=== PATIENT | female | born 1960 | race Caucasian/White ===

== ENCOUNTER 2018-07-29 10:27 | Day surgery (SDC) | payer MEDICAID ==
[2018-07-21 17:26] LABS: BASOPHILS # (AUTO) 0.1 X10'3 (0-0.2); BASOPHILS % (AUTO) 0.7 % (0-1); EOSINOPHILS # (AUTO) 0.2 X10'3 (0-0.9); EOSINOPHILS % (AUTO) 3.2 % (0-6); LYMPHOCYTES # (AUTO) 2.1 X10'3 (1.1-4.8); MEAN CORPUSCULAR HEMOGLOBIN 28.4 PG (27.0-31.0); MEAN CORPUSCULAR HGB CONC 32.7 g/dL (33.0-36.5); MEAN CORPUSCULAR VOLUME 86.7 FL (78-98); MEAN PLATELET VOLUME 8.3 FL (7.4-10.4); MONOCYTES # (AUTO) 0.8 X10'3 (0-0.9); MONOCYTES % (AUTO) 9.9 % (2-12); NEUTROPHILS # (AUTO) 4.5 X10'3 (1.8-7.7); NEUTROPHILS % (AUTO) 59.2 % (42-75); PRE OP HEMATOCRIT 40.1 % (35.0-45.0); PRE OP HEMOGLOBIN 13.1 g/dL (12.0-16.0); PRE OP PLATELET COUNT 267 X10'3 (140-440); RED BLOOD COUNT 4.62 X10'6 (4.20-5.60); RED CELL DISTRIBUTION WIDTH 13.6 % (11.5-14.5)
[2018-07-21 17:38] LABS: ALBUMIN 3.8 G/DL (3.4-5.0); ALBUMIN/GLOBULIN RATIO 1.1 (1.1-1.5); ALKALINE PHOSPHATASE 69 IU/L (46-116); BLOOD UREA NITROGEN 14 MG/DL (7-18); CALCIUM 9.2 MG/DL (8.5-10.1); CHLORIDE 105 MMOL/L (99-107); PRE OP ALT 24 U/L (30-65); PRE OP ANION GAP 4 (8-16); PRE OP AST 13 U/L (10-37); PRE OP BILIRUB, TOTAL 0.3 MG/DL (0.0-1.0); PRE OP GLUCOSE 78 MG/DL (70-104); PRE OP POTASSIUM 3.4 MMOL/L (3.4-5.1); PRE OP SODIUM 142 MMOL/L (135-145); TOTAL CARBON DIOXIDE 32.7 MMOL/L (24-32); TOTAL PROTEIN 7.3 G/DL (6.4-8.2); eGFR 86 ML/MIN
[2018-07-29] VITALS (8 sets, daily range): BP systolic 106–157; BP diastolic 63–86
[~2018-07-29] VITALS: Ht 165.1 cm; Wt 105.4 kg
[~2018-07-29 10:27] MED LIST: ACET-75 PO; ALBU8.5H8 INH; BACL10TA PO; LISI30TA4 PO; MULT-933 PO; NAPR-56 PO; PRAV20TA4 PO; TRAZ-219 PO; VANCOMYCIN INJ 1000 MG in NORMAL SALINE 250ml IV.SOLN IV ONE; ceFAZolin 2gm in dextrose, iso 100 ML IV ONE; famotidine 20mg tablet PO ONE; ringers solution, lacted 1,000 ML IV SCH
[2018-07-29] MEDS ORDERED: midazolam 2 mg/2 ml injection IV PRN (12:00)
[2018-07-29] MEDS ORDERED: midazolam 2 mg/2 ml injection IV ONE (12:00)
[2018-07-29] MEDS ORDERED: triamcinolone acetonide 40mg/ml inj ONE (12:48)
[2018-07-29] MEDS ORDERED: BUPIVAcaine/PF 2.5 mg/ml (0.25%) 30ml vial ONE (12:48)
[2018-07-29] MEDS ORDERED: MIDAZolam 5mg/5ml vial ONE (12:56)
[2018-07-29] MEDS ORDERED: fentaNYL/PF 50MCG/1 ML 2ML syringe ONE (12:56)
[2018-07-29] MEDS ORDERED: ringers solution, lacted 1,000 ML IV SCH (12:59)
[2018-07-29] MEDS ORDERED: hydrALAZINE 20mg/ml inj. IV PRN (13:00)
[2018-07-29] MEDS ORDERED: morphine 4 MG/ML inj SYRINge IV PRN ×2 (13:00)
[2018-07-29] MEDS ORDERED: ondansetron/PF 4mg/2ml inj IV PRN (13:00)
[2018-07-29] MEDS ORDERED: labetalol 20mg/4ml (5mg/ml) syringe IV PRN (13:00)
[2018-07-29] MEDS ORDERED: meperidine/PF 25mg/ml syringe IV PRN ×2 (13:00)
[2018-07-29] MEDS ORDERED: diphenhydrAMINE 50 mg/ml inj ONE (13:26)
--- NOTE | 2018-07-29 14:20 | NUR ---
Received from OR via BED, accompanied by Anesthesiologist DR ALBERTO and report given by Anesthesiolgist. PATIENT WAKING UP, NO S/S OF PAIN, V/S WNL, CSM INTACT, DRESSING TO LEFT KNEE CDI AND COLD POWDER PACK AND SCD ON LEGS. 20G PIV TO UMER.
--- NOTE | 2018-07-29 15:20 | NUR ---
PATIENT A&OX4, DENIES PAIN, V/S WNL, CSM INTACT, DRESSING TO LEFT KNEE CDI W/ COLD POWDER PACK AND SCD OFF LEGS. 20G PIV TO UMER D/C. I HAVE REVIEWED D/C INSTRUCTIONS WITH PATIENT AND SHE HAS EVRBALIZED UNDERSTANDING. PATIENT D/C HOME WITH ALL BELONGINGS AND FAMILY GAVE TRANSPORT HOME.
== END 2018-07-29 15:20 | disposition home or self-care (01) ==
LOC: PAS 10:27
PROVIDERS: ATTEND Orthopaedic Surgery
DX: S83.242A Other tear of medial meniscus, current injury, left knee, initial encounter (principal); S83.282A Other tear of lateral meniscus, current injury, left knee, initial encounter; M22.8X2 Other disorders of patella, left knee; M17.0 Bilateral primary osteoarthritis of knee; M22.42 Chondromalacia patellae, left knee; Z79.899 Other long term (current) drug therapy; Z68.39 Body mass index [BMI] 39.0-39.9, adult; I10 Essential (primary) hypertension; E78.5 Hyperlipidemia, unspecified; E66.01 Morbid (severe) obesity due to excess calories; F32.89 Other specified depressive episodes; Z90.710 Acquired absence of both cervix and uterus; Z98.890 Other specified postprocedural states; Z87.891 Personal history of nicotine dependence; Z72.89 Other problems related to lifestyle; F41.9 Anxiety disorder, unspecified; X58.XXXA Exposure to other specified factors, initial encounter; Y93.89 Activity, other specified; Y92.89 Other specified places as the place of occurrence of the external cause; Y99.8 Other external cause status
CPT/HCPCS: 29873; 29879; 29880; 36415; 80053; 82948; 85025; 93005; J0690; J1200; J2250; J3010; J3301; J3370; J3490; A6250; A6449; A7000; J7030; J7120

== ENCOUNTER → 2018-08-19 | Day surgery (SDC) | payer MEDICAID ==
[~2018-08-19] VITALS: Ht 162.6 cm; Wt 106.3 kg
[2018-08-19] VITALS (8 sets, daily range): BP systolic 112–149; BP diastolic 54–90
[~2018-08-19] MED LIST changes: +BUPIVAcaine/PF 2.5 mg/ml (0.25%) 30ml vial ONE; +LIDOcaine 0.5% (5mg/ml) 50ml vial ONE; +LIDOcaine 2% (20mg/ml) 5ml vial ONE; +MIDAZolam 5mg/5ml vial ONE; +VANCOMYCIN 1,500MG inj. 1,500 MG in normal saline 250ml IV soln 280 ML IV ONE; -ceFAZolin 2gm in dextrose, iso 100 ML IV ONE; +cefazolin/dext.iso 2gm/100 ML IV ONE; +fentaNYL/PF 50MCG/1 ML 2ML syringe IV PRN; +fentaNYL/PF 50MCG/1 ML 2ML syringe ONE; +hydrALAZINE 20mg/ml inj. IV PRN; +labetalol 20mg/4ml (5mg/ml) syringe IV PRN; +methylPREDNISolone sod succ 125mg/2ml vial ONE; +morphine 4 MG/ML inj SYRINge IV PRN; +ondansetron/PF 4mg/2ml inj IV PRN; +propofol inj 20 ML IV ONE
[2018-08-19 13:59] LABS: BASOPHILS # (AUTO) 0.1 X10'3 (0-0.2); EOSINOPHILS # (AUTO) 0.2 X10'3 (0-0.9); EOSINOPHILS % (AUTO) 2.7 % (0-6); LYMPHOCYTES % (AUTO) 34.2 % (21-51); MEAN CORPUSCULAR HEMOGLOBIN 29.2 PG (27.0-31.0); MEAN CORPUSCULAR HGB CONC 34.4 g/dL (33.0-36.5); MEAN CORPUSCULAR VOLUME 84.8 FL (78-98); MEAN PLATELET VOLUME 8.2 FL (7.4-10.4); MONOCYTES # (AUTO) 0.7 X10'3 (0-0.9); MONOCYTES % (AUTO) 12.1 % (2-12); NEUTROPHILS # (AUTO) 2.9 X10'3 (1.8-7.7); PRE OP HEMATOCRIT 39.7 % (35.0-45.0); PRE OP HEMOGLOBIN 13.7 g/dL (12.0-16.0); PRE OP PLATELET COUNT 246 X10'3 (140-440); RED BLOOD COUNT 4.68 X10'6 (4.20-5.60); RED CELL DISTRIBUTION WIDTH 13.6 % (11.5-14.5)
[2018-08-19 14:13] LABS: ALBUMIN 3.6 G/DL (3.4-5.0); ALBUMIN/GLOBULIN RATIO 0.9 (1.1-1.5); ALKALINE PHOSPHATASE 73 IU/L (46-116); BLOOD UREA NITROGEN 16 MG/DL (7-18); BUN/CREATININE RATIO 25.8 (6.6-38.0); CALCIUM 8.9 MG/DL (8.5-10.1); CHLORIDE 104 MMOL/L (99-107); CREATININE 0.62 MG/DL (0.40-0.90); PRE OP ALT 30 U/L (30-65); PRE OP ANION GAP 9 (8-16); PRE OP AST 13 U/L (10-37); PRE OP BILIRUB, TOTAL 0.4 MG/DL (0.0-1.0); PRE OP GLUCOSE 92 MG/DL (70-104); PRE OP POTASSIUM 3.6 MMOL/L (3.4-5.1); PRE OP SODIUM 138 MMOL/L (135-145); TOTAL CARBON DIOXIDE 25.5 MMOL/L (24-32); TOTAL PROTEIN 7.6 G/DL (6.4-8.2); eGFR > 90 ML/MIN
--- NOTE | 2018-08-19 16:05 | NUR ---
Received from OR via bed, accompanied by Anesthesiologist. Report received. Initial physical assessment done and recorded.
--- NOTE | 2018-08-19 17:00 | NUR ---
Discharged home in good condition. No complaints of pain during post op period, no pain meds given no complaints. Discharge criteria met, discharge instructions given, demonstrates verbal understanding.
== END | disposition home or self-care (01) ==
LOC: PRE-OP 12:04
PROVIDERS: ATTEND Orthopaedic Surgery
DX: G56.01 Carpal tunnel syndrome, right upper limb (principal); G56.21 Lesion of ulnar nerve, right upper limb; Z98.890 Other specified postprocedural states; M17.0 Bilateral primary osteoarthritis of knee; Z90.710 Acquired absence of both cervix and uterus; E78.5 Hyperlipidemia, unspecified; F32.89 Other specified depressive episodes; E66.01 Morbid (severe) obesity due to excess calories; Z68.39 Body mass index [BMI] 39.0-39.9, adult; Z68.41 Body mass index [BMI] 40.0-44.9, adult; F41.8 Other specified anxiety disorders; Z87.891 Personal history of nicotine dependence
CPT/HCPCS: 36415; 64719; 64721; 80053; 82948; 85025; A6222; J2001; J2250; J2704; J2930; J3010; J3370; J3490; J7030; A6250; A6449; A7000; J0690; J7120

== ENCOUNTER → 2018-12-02 | Day surgery (SDC) | payer MEDICAID ==
[2018-11-24 14:41] LABS: BASOPHILS # (AUTO) 0.1 X10'3 (0-0.2); BASOPHILS % (AUTO) 0.9 % (0-1); EOSINOPHILS # (AUTO) 0.2 X10'3 (0-0.9); EOSINOPHILS % (AUTO) 3.5 % (0-6); LYMPHOCYTES # (AUTO) 1.9 X10'3 (1.1-4.8); LYMPHOCYTES % (AUTO) 27.6 % (21-51); MEAN CORPUSCULAR HEMOGLOBIN 29.1 PG (27.0-31.0); MEAN CORPUSCULAR HGB CONC 33.5 g/dL (33.0-36.5); MEAN PLATELET VOLUME 8.1 FL (7.4-10.4); MONOCYTES # (AUTO) 0.7 X10'3 (0-0.9); MONOCYTES % (AUTO) 10.7 % (2-12); NEUTROPHILS # (AUTO) 3.9 X10'3 (1.8-7.7); NEUTROPHILS % (AUTO) 57.3 % (42-75); PRE OP HEMATOCRIT 41.5 % (35.0-45.0); PRE OP HEMOGLOBIN 13.9 g/dL (12.0-16.0); PRE OP PLATELET COUNT 283 X10'3 (140-440); RED BLOOD COUNT 4.78 X10'6 (4.20-5.60); RED CELL DISTRIBUTION WIDTH 13.7 % (11.5-14.5)
[2018-11-24 15:02] LABS: ALBUMIN 4.3 G/DL (3.4-5.0); ALBUMIN/GLOBULIN RATIO 1.1 (1.1-1.5); ALKALINE PHOSPHATASE 78 IU/L (46-116); BLOOD UREA NITROGEN 16 MG/DL (7-18); BUN/CREATININE RATIO 22.2 (6.6-38.0); CALCIUM 9.4 MG/DL (8.5-10.1); CHLORIDE 104 MMOL/L (99-107); CREATININE 0.72 MG/DL (0.40-0.90); PRE OP ALT 29 U/L (30-65); PRE OP ANION GAP 7 (8-16); PRE OP AST 18 U/L (10-37); PRE OP BILIRUB, TOTAL 0.5 MG/DL (0.0-1.0); PRE OP GLUCOSE 89 MG/DL (70-104); PRE OP POTASSIUM 3.8 MMOL/L (3.4-5.1); PRE OP SODIUM 142 MMOL/L (135-145); TOTAL CARBON DIOXIDE 30.8 MMOL/L (24-32); TOTAL PROTEIN 8.1 G/DL (6.4-8.2); eGFR 83 ML/MIN
[~2018-12-02] VITALS: Ht 162.6 cm; Wt 108.4 kg
[2018-12-02] VITALS (12 sets, daily range): BP systolic 104–163; BP diastolic 50–89
[~2018-12-02] MED LIST changes: +ACET-812 PO; +HYDROcodone/acetaminophen 10/325mg tab PO PRN; -LIDOcaine 0.5% (5mg/ml) 50ml vial ONE; -LIDOcaine 2% (20mg/ml) 5ml vial ONE; +MULT-625 PO; +NAPR500T6 PO; -VANCOMYCIN 1,500MG inj. 1,500 MG in normal saline 250ml IV soln 280 ML IV ONE; +albuterol 2.5 MG/3 ML nebule NEB ONE; -cefazolin/dext.iso 2gm/100 ML IV ONE; +cefazolin/dext.iso 2gm/50ml 50 ML IV ONE; -fentaNYL/PF 50MCG/1 ML 2ML syringe IV PRN; -hydrALAZINE 20mg/ml inj. IV PRN; -labetalol 20mg/4ml (5mg/ml) syringe IV PRN; +meperidine/PF 25mg/ml syringe IV PRN; -methylPREDNISolone sod succ 125mg/2ml vial ONE; +proCHLORperazine 10 MG/2 ml inj IV PRN; +triamcinolone acetonide 40mg/ml inj ONE
--- NOTE | 2018-12-02 14:25 | NUR ---
Received from OR via BED , accompanied by Anesthesiologist DR BADILLO and report given by Anesthesiolgist. PATIENT WAKING UP, NO S/S OF PAIN, V/S WNL, NEUROVASCULAR CHECKS INTACT. PIV 20G TO RUE , SCD ON, DRESSING TO RIGHT KNEE CDI.
--- NOTE | 2018-12-02 15:45 | NUR ---
PATIENT A&OX4, DENIES PAIN, V/S WNL, NEUROVASCULAR CHECKS INTACT. PIV 20G TO ANGIE , SCD ON, DRESSING TO RIGHT KNEE CDI. PATIENT SPINAL HAS NOT YET WORN OFF. PATIENT CAN BE D/C HOME WHEN SHE IS ABLE TO WALK PER DR BADILLO. PATIENT TAKEN TO 4012A WITH ALL BELONGINGS AND HOOKED UP TO MONITORS IN ROOM AND REPORT GIVEN TO MINDI ESPINO WHO HAS TAKEN OVER PATIENT CARE.
--- NOTE | 2018-12-02 18:20 | NUR ---
Patient in room . I have received report from KENZIE Solorzano and had the opportunity to ask questions and assume patient care.
--- NOTE | 2018-12-02 22:10 | NUR ---
Pt. discharge home with her via private car.All instruction was given for follow up appointments .Pt. verbalized understanding.
== END | disposition home or self-care (01) ==
LOC: PAS 09:43
PROVIDERS: ATTEND Orthopaedic Surgery
DX: S83.231A Complex tear of medial meniscus, current injury, right knee, initial encounter (principal); S83.271A Complex tear of lateral meniscus, current injury, right knee, initial encounter; M94.261 Chondromalacia, right knee; I10 Essential (primary) hypertension; J45.909 Unspecified asthma, uncomplicated; M19.90 Unspecified osteoarthritis, unspecified site; F32.9 Major depressive disorder, single episode, unspecified; F41.9 Anxiety disorder, unspecified; E78.5 Hyperlipidemia, unspecified; M17.0 Bilateral primary osteoarthritis of knee; E66.01 Morbid (severe) obesity due to excess calories; Z68.39 Body mass index [BMI] 39.0-39.9, adult; Z72.89 Other problems related to lifestyle; Z87.891 Personal history of nicotine dependence; Z82.3 Family history of stroke; Z81.8 Family history of other mental and behavioral disorders; Z80.3 Family history of malignant neoplasm of breast; X58.XXXA Exposure to other specified factors, initial encounter; Y93.89 Activity, other specified; Y92.89 Other specified places as the place of occurrence of the external cause; Y99.8 Other external cause status; R06.02 Shortness of breath
CPT/HCPCS: 29873; 29879; 29880; 36415; 80053; 82948; 85025; 94640; 94760; J2250; J2704; J3010; J3301; J3370; J3490; J7120; A4215; A4618; A6250; A6449; A7000

== ENCOUNTER 2018-12-16 08:31 | Day surgery (SDC) | payer MEDICAID ==
[2018-12-16] VITALS (7 sets, daily range): BP systolic 121–131; BP diastolic 70–90
[~2018-12-16] VITALS: Ht 162.6 cm; Wt 108.4 kg
[~2018-12-16 08:31] MED LIST changes: -ACET-75 PO; -ACET-812 PO; -BACL10TA PO; -BUPIVAcaine/PF 2.5 mg/ml (0.25%) 30ml vial ONE; -HYDROcodone/acetaminophen 10/325mg tab PO PRN; -MIDAZolam 5mg/5ml vial ONE; -MULT-625 PO; -NAPR500T6 PO; -VANCOMYCIN INJ 1000 MG in NORMAL SALINE 250ml IV.SOLN IV ONE; -albuterol 2.5 MG/3 ML nebule NEB ONE; -fentaNYL/PF 50MCG/1 ML 2ML syringe ONE; -meperidine/PF 25mg/ml syringe IV PRN; -morphine 4 MG/ML inj SYRINge IV PRN; -ondansetron/PF 4mg/2ml inj IV PRN; -proCHLORperazine 10 MG/2 ml inj IV PRN; -propofol inj 20 ML IV ONE; -triamcinolone acetonide 40mg/ml inj ONE
[2018-12-16] MEDS ORDERED: ringers solution, lacted 1,000 ML IV SCH (09:14)
[2018-12-16] MEDS ORDERED: meperidine/PF 25mg/ml syringe IV PRN ×3 (09:15)
[2018-12-16] MEDS ORDERED: ondansetron/PF 4mg/2ml inj IV PRN (09:15)
[2018-12-16] MEDS ORDERED: proCHLORperazine 10 MG/2 ml inj IV PRN (09:15)
[2018-12-16] MEDS ORDERED: morphine 4 MG/ML inj SYRINge IV PRN ×2 (09:15)
[2018-12-16] MEDS ORDERED: cloNIDine hcl/PF 100mcg/ml inj ONE (09:53)
[2018-12-16] MEDS ORDERED: methylPREDNISolone sod succ 125mg/2ml vial ONE ×2 (10:53→12:05)
[2018-12-16] MEDS ORDERED: BUPIVAcaine/PF 2.5 mg/ml (0.25%) 30ml vial ONE ×2 (10:53→12:25)
[2018-12-16] MEDS ORDERED: fentaNYL/PF 50MCG/1 ML 2ML syringe ONE (10:54)
[2018-12-16] MEDS ORDERED: MIDAZolam 5mg/5ml vial ONE (10:55)
[2018-12-16] MEDS ORDERED: ketamine 50mg/5ml syringe ONE (11:43)
[2018-12-16] MEDS ORDERED: LIDOcaine 2% (20mg/ml) 5ml vial ONE (12:30)
[2018-12-16] MEDS ORDERED: propofol inj 20 ML IV ONE (12:30)
[2018-12-16] MEDS ORDERED: ROPIVAcaine 0.5% (5mg/ml) 30ml vial ONE (12:31)
--- NOTE | 2018-12-16 12:42 | NUR ---
Received from OR via [facility], accompanied by Anesthesiologist John and report given by Anesthesiolgist. Pt alert and oriented, awake, VS stable O2 96% on room air, IV 20G to right wrist with LR IVF at 100cc/hr. . Pt does not have feeling from intermediate down back of tricep, to fingers. Pt not in any pain. Splint to left extrem with brace over top. Unable to assess pulse to left upper extrem but fingers have good cap refill.
--- NOTE | 2018-12-16 13:52 | NUR ---
Pt left floor by wheelchair to vehicle without issue. Pt and spouse verbalized understanding of discharge information. IV DC'd. Hinge brace adjusted by orthopedic nurse and sling placed on for comfort. Pt still has good cap refill in fingers. They know to follow up in 3 weeks. Pt has pain meds at home no new scripts.
== END 2018-12-16 13:52 | disposition home or self-care (01) ==
LOC: PAS 08:31
PROVIDERS: ATTEND Orthopaedic Surgery
DX: G56.02 Carpal tunnel syndrome, left upper limb (principal); G56.22 Lesion of ulnar nerve, left upper limb; I10 Essential (primary) hypertension; E78.5 Hyperlipidemia, unspecified; M17.0 Bilateral primary osteoarthritis of knee; E66.01 Morbid (severe) obesity due to excess calories; Z68.41 Body mass index [BMI] 40.0-44.9, adult; Z90.710 Acquired absence of both cervix and uterus; Z98.890 Other specified postprocedural states; Z87.891 Personal history of nicotine dependence; Z72.89 Other problems related to lifestyle; Z82.3 Family history of stroke; Z81.8 Family history of other mental and behavioral disorders; Z83.3 Family history of diabetes mellitus
CPT/HCPCS: 64413; 64718; 64719; 64721; 82948; J0735; J2001; J2250; J2704; J2930; J3010; J3370; J3490; L3999; A4215; A4618; A6250; A6449; A7000; J2795; J7120

== ENCOUNTER 2023-01-20 05:50 | Inpatient (IN) | payer MEDICAID ==
[2023-01-19 11:46] LABS: BASOPHILS % (AUTO) 0.6 % (0-1); EOSINOPHILS # (AUTO) 0.1 X10'3 (0-0.9); EOSINOPHILS % (AUTO) 2.1 % (0-6); LYMPHOCYTES % (AUTO) 15.8 % (21-51); MEAN CORPUSCULAR HEMOGLOBIN 29.4 PG (27.0-31.0); MEAN CORPUSCULAR HGB CONC 33.6 g/dL (33.0-36.5); MEAN CORPUSCULAR VOLUME 87.5 FL (78-98); MEAN PLATELET VOLUME 7.8 FL (7.4-10.4); MONOCYTES # (AUTO) 0.9 X10'3 (0-0.9); MONOCYTES % (AUTO) 13.6 % (2-12); NEUTROPHILS # (AUTO) 4.3 X10'3 (1.8-7.7); NEUTROPHILS % (AUTO) 67.9 % (42-75); PRE OP HEMATOCRIT 42.7 % (35.0-45.0); PRE OP HEMOGLOBIN 14.3 g/dL (12.0-16.0); PRE OP PLATELET COUNT 230 X10'3 (140-440); PRE OP WHITE BLOOD COUNT 6.4 10'3 (4.8-10.8); RED BLOOD COUNT 4.88 X10'6 (4.20-5.60); RED CELL DISTRIBUTION WIDTH 15.3 % (11.5-14.5)
[2023-01-19 11:52] LABS: ALKALINE PHOSPHATASE 83 IU/L (46-116); BLOOD UREA NITROGEN 16 MG/DL (7-18); BUN/CREATININE RATIO 18.8 (10.0-20.0); CALCIUM 9.3 MG/DL (8.5-10.1); CHLORIDE 103 MMOL/L (99-107); CREATININE 0.85 MG/DL (0.40-0.90); PRE OP ALT 49 U/L (30-65); PRE OP ANION GAP 7 (8-16); PRE OP AST 28 U/L (10-37); PRE OP BILIRUB, TOTAL 0.7 MG/DL (0.0-1.0); PRE OP GLUCOSE 106 MG/DL (70-104); PRE OP SODIUM 138 MMOL/L (135-145); TOTAL CARBON DIOXIDE 28.2 MMOL/L (24-32); TOTAL PROTEIN 8.1 G/DL (6.4-8.2); eGFR 68 ML/MIN
[2023-01-20] VITALS (33 sets, daily range): BP systolic 105–176; BP diastolic 34–82; PULSE 18–103; RESP 11–20; TEMP 97.2–98.4; O2SAT 92–100
[~2023-01-20] VITALS: Ht 162.6 cm; Wt 105.0 kg
[~2023-01-20 05:50] MED LIST changes: +ALBU8.5H17 INH; -ALBU8.5H8 INH; +ATOR80TA PO; +BECL7.3A INH; +ESCI20TA17 PO; -LISI30TA4 PO; +LISI40TA13 PO; +LORA-835 PO; -MULT-933 PO; -NAPR-56 PO; -PRAV20TA4 PO; -TRAZ-219 PO; +TRAZ-256 PO; -cefazolin/dext.iso 2gm/50ml 50 ML IV ONE
--- NOTE | 2023-01-20 06:25 | NUR ---
PATIENT DID OINTMENT, WATCHED VIDEO, CSM INTACT
[2023-01-20] MEDS ORDERED: BUPIVACAINE/MELOXICAM 14 ML VIAL IL ONE (07:05)
[2023-01-20] MEDS ORDERED: cefazolin 2gm/D5W 100mL 100 ML IV ONE (07:41)
[2023-01-20] MEDS ORDERED: vancomycin 1,500 MG in NS 300ml IV soln IV ONE (07:41)
[2023-01-20] MEDS ORDERED: tranexamic acid 650mg tablet PO ONE (07:41)
[2023-01-20] MEDS ORDERED: hydrALAZINE 20mg/ml inj. IV PRN (07:50)
[2023-01-20] MEDS ORDERED: ringers solution, lacted 1,000 ML IV SCH (07:50)
[2023-01-20] MEDS ORDERED: morphine 4 MG/ML inj SYRINge IV PRN (07:50)
[2023-01-20] MEDS ORDERED: morphine 2 MG/ML inj. syringe IV PRN (07:50)
[2023-01-20] MEDS ORDERED: ondansetron/PF 4mg/2ml inj IV PRN (07:50)
[2023-01-20] MEDS ORDERED: labetalol 20mg/4ml (5mg/ml) syringe IV PRN (07:50)
[2023-01-20] MEDS ORDERED: fentaNYL/PF 50MCG/1 ML 2ML syringe IV PRN ×2 (07:50)
[2023-01-20] MEDS ORDERED: fentaNYL/PF 50MCG/1 ML 2ML syringe ONE (08:23)
[2023-01-20] MEDS ORDERED: MIDAZolam 1mg/ml 10ml vial ONE (08:23)
[2023-01-20] MEDS ORDERED: ROPIVAcaine 0.5% (5mg/ml) 30ml vial ONE (09:58)
[2023-01-20] MEDS ORDERED: dexamethasone sod phosphate 4mg/ml inj. ONE (09:58)
--- NOTE | 2023-01-20 10:29 | NUR ---
Received from OR via [facility] TO RR 7, accompanied by Anesthesiologist MARIOLA and report given by Anesthesiologist. PT PRESENTS ON 6L VIA MASK, VSS. RIGHT KNEE DRESSING CDI, ELEVATED AND POWDER PACK APPLIED. PT IS NEUROLOGICALLY INTACT, BILATERAL PEDAL PULSES +2. LR RUNNING THRU PIV. NO SENSATION IN BILATERAL LOWER EXTREMITIES, PATIENT IS NOT ABLE TO MOVE BILATERAL LOWER EXTREMITIES.
[2023-01-20] MEDS ORDERED: oxyCODONE IR 5mg (immed. release) tablet PO PRN (11:00)
[2023-01-20] MEDS ORDERED: HYDROmorphone inj. 0.5 MG/0.5 ML DISP.SYRIN IV PRN (11:00)
[2023-01-20] MEDS ORDERED: acetaminophen 325mg tablet PO PRN (11:00)
[2023-01-20] MEDS ORDERED: bisacodyl 10mg suppository rectal RC PRN (11:00)
[2023-01-20] MEDS ORDERED: naloxone 0.4 mg/ml inj IV PRN (11:00)
[2023-01-20] MEDS ORDERED: magnesium hydroxide 30ml (MOM) UD suspension PO PRN (11:00)
[2023-01-20] MEDS ORDERED: diphenhydrAMINE 25mg capsule PO PRN ×2 (11:00)
--- NOTE | 2023-01-20 12:50 | NUR ---
Received report from PACU nurse, patient stable post operatively. VS WNL, transferring on a bed, dressing CDI. Will assume care upon arrival.
--- NOTE | 2023-01-20 12:59 | NUR ---
PATIENT IS STABLE FOR TRANSFER PER MD ORDERS. REPORT CALLED TO PRIMARY NURSE, KELIN. ALL QUESTIONS, COMMENTS, AND CONCERNS WERE ANSWERED AT THIS TIME. RIGHT KNEE DRESSING REMAINS CLEAN, DRY, AND INTACT AND POWDER PACK IS IN PLACE. ALL PERSONAL BELONGINGS SENT WITH PATIENT TO ROOM 4013A. PATIENT HOOKED UP TO POST OP VITALS, CALL LIGHT WITHIN REACH, BLL, 2 RAILS UP. PRIMARY NURSE AWARE PATIENT HAS BEEN TRANSFERRED TO ROOM.
--- NOTE | 2023-01-20 13:05 | NUR ---
CALL TO ALEXEY, - ADVISED OF ROOM NUMBER AND TO BRING CELL PHONE PER PATIENT REQUEST.
[2023-01-20] MEDS: HYDROmorphone 1 mg/ml syringe IV PRN (14:28)
[2023-01-20] MEDS: acetaminophen 325mg tablet PO SCH ×2 (14:29→21:27)
[2023-01-20] MEDS: potassium cl 20mEq in 1/2 NS 1,000 ML IV SCH ×2 (14:30→19:00)
[2023-01-20] MEDS: ondansetron/PF 4mg/2ml inj IV PRN (14:38)
--- NOTE | 2023-01-20 15:19 | NUR ---
Paged below message to the BONNIE NURSE. Patient in 4012 A, Smitha Barnes. May I please have this pt darted when possible, thank you!
[2023-01-20] MEDS: albuterol 2.5 MG/3 ML nebule NEB PRN ×2 (16:10→20:18)
[2023-01-20] MEDS: ceFAZolin/D5W- 1GM premix 50 ML IV SCH (16:44)
--- NOTE | 2023-01-20 17:29 | NUR ---
Patient worked w/ PT today, tolerated well. Reported the patient only dangled at bedside due to nerve block still enforce. Patient has SCD's on, powder pack changed, elevated extremity.
[2023-01-20] MEDS ORDERED: vancomycin/NS 1 GM ADD-VANTAGE 250 ML IV SCH (20:00)
--- NOTE | 2023-01-20 20:17 | NUR ---
Patient in room ORTHO 4013. I have received report from cabrera JOY and had the opportunity to ask questions and assume patient care.
[2023-01-20] MEDS: budesonide 0.5mg/2ml UD nebule IH SCH ×2 (20:18→21:00)
[2023-01-20] MEDS: atorvastatin 20mg tablet PO SCH (21:27)
[2023-01-20] MEDS: traZODone 150mg tablet PO SCH (21:27)
[2023-01-20] MEDS: sennosides 8.6mg tablet PO SCH (21:28)
[2023-01-21] VITALS (13 sets, daily range): BP systolic 114–167; BP diastolic 59–66; PULSE 74–112; RESP 16–18; TEMP 97.5–102.2; O2SAT 88–100
[2023-01-21] MEDS: ceFAZolin/D5W- 1GM premix 50 ML IV SCH (01:03)
[2023-01-21] MEDS: acetaminophen 325mg tablet PO SCH ×4 (02:00→20:18)
[2023-01-21] MEDS: potassium cl 20mEq in 1/2 NS 1,000 ML IV SCH ×3 (03:00→20:06)
[2023-01-21] MEDS: oxyCODONE IR 5mg (immed. release) tablet PO PRN ×3 (04:46→20:18)
--- NOTE | 2023-01-21 04:58 | NUR ---
patient medicated x2 for pain in right knee. with good effect. Awoke feeling congested. IS given, RT paged. Temp 99.6. will continue to monitor
[2023-01-21] MEDS: albuterol 2.5 MG/3 ML nebule NEB PRN ×2 (05:03→08:19)
[2023-01-21 06:26] LABS: BASOPHILS % (AUTO) 0.5 % (0-1); EOSINOPHILS % (AUTO) 0.3 % (0-6); HEMOGLOBIN 12.4 g/dl (12.0-16.0); LYMPHOCYTES # (AUTO) 1.1 X10'3 (1.1-4.8); LYMPHOCYTES % (AUTO) 14.9 % (21-51); MEAN CORPUSCULAR HEMOGLOBIN 29.2 PG (27.0-31.0); MEAN CORPUSCULAR HGB CONC 33.5 g/dL (33.0-36.5); MEAN CORPUSCULAR VOLUME 87.1 FL (78-98); MEAN PLATELET VOLUME 8.2 FL (7.4-10.4); MONOCYTES # (AUTO) 1.1 X10'3 (0-0.9); MONOCYTES % (AUTO) 14.2 % (2-12); NEUTROPHILS # (AUTO) 5.4 X10'3 (1.8-7.7); NEUTROPHILS % (AUTO) 70.1 % (42-75); PLATELET COUNT 200 X10'3 (140-440); RED BLOOD COUNT 4.25 X10'6 (4.20-5.60); RED CELL DISTRIBUTION WIDTH 15.3 % (11.5-14.5); WHITE BLOOD COUNT 7.7 X10'3 (4.5-11.0)
--- NOTE | 2023-01-21 06:40 | NUR ---
Problems reprioritized. Patient report given, questions answered & plan of care reviewed with Taya ESPINO.
[2023-01-21 06:44] LABS: ANION GAP 11 (8-16); CHLORIDE 103 MMOL/L (99-107); POTASSIUM 3.9 MMOL/L (3.5-5.1); SODIUM 139 MMOL/L (135-145); TOTAL CARBON DIOXIDE 25.3 MMOL/L (24-32)
--- NOTE | 2023-01-21 06:52 | NUR ---
Patient in room ORTHO 4013. I have received report from KENZIE Wright and had the opportunity to ask questions and assume patient care.
[2023-01-21] MEDS: aspirin 325mg tablet PO SCH (07:15)
[2023-01-21] MEDS: ESCITALOPRAM 10 mg tablet 10 MG TABLET PO SCH (07:15)
[2023-01-21] MEDS: lisinopril 10 MG tablet PO SCH (07:17)
[2023-01-21] MEDS: HYDROmorphone 1 mg/ml syringe IV PRN ×2 (07:19→17:04)
[2023-01-21] MEDS: ondansetron/PF 4mg/2ml inj IV PRN (07:20)
[2023-01-21] MEDS ORDERED: PSEUDOEPHEDRINE PO SCH (08:00)
[2023-01-21] MEDS ORDERED: LORATADINE PO SCH (08:00)
[2023-01-21] MEDS: budesonide 0.5mg/2ml UD nebule IH SCH ×2 (08:19→20:52)
--- NOTE | 2023-01-21 13:32 | NUR ---
Joint surgery consult: Pt s/p knee surgery per EMR. Pt seen at bedside by EDWARD for high protein nutrition education. RD contact also provided and encouraged pt to reach out for any nutrition questions or concerns. Addendum: 01/21/23 at [address] Amended: Links added.
--- NOTE | 2023-01-21 17:49 | NUR ---
D/C [facility] per protocol - post op day one
--- NOTE | 2023-01-21 18:30 | NUR ---
Problems reprioritized. Patient report given, questions answered & plan of care reviewed with KENZIE Muhammad.
[2023-01-21] MEDS: sennosides 8.6mg tablet PO SCH (20:17)
[2023-01-21] MEDS: atorvastatin 20mg tablet PO SCH (20:17)
[2023-01-21] MEDS: traZODone 150mg tablet PO SCH (20:18)
[2023-01-22] VITALS (13 sets, daily range): BP systolic 111; BP diastolic 48; PULSE 94–122; RESP 16–18; TEMP 99.4; O2SAT 88–94
[2023-01-22] MEDS: oxyCODONE IR 5mg (immed. release) tablet PO PRN ×4 (00:34→16:39)
[2023-01-22] MEDS: albuterol 2.5 MG/3 ML nebule NEB PRN ×4 (00:43→15:57)
[2023-01-22] MEDS: acetaminophen 325mg tablet PO SCH ×2 (02:00→08:03)
[2023-01-22] MEDS: potassium cl 20mEq in 1/2 NS 1,000 ML IV SCH (02:02)
[2023-01-22 06:33] LABS: EOSINOPHILS # (AUTO) 0.1 X10'3 (0-0.9); MEAN CORPUSCULAR VOLUME 87.5 FL (78-98); WHITE BLOOD COUNT 7.5 X10'3 (4.5-11.0)
[2023-01-22 06:35] LABS: BASOPHILS % (AUTO) 0.3 % (0-1); EOSINOPHILS % (AUTO) 0.8 % (0-6); HEMATOCRIT 32.6 % (35.0-45.0); LYMPHOCYTES % (AUTO) 12.8 % (21-51); MEAN CORPUSCULAR HEMOGLOBIN 29.6 PG (27.0-31.0); MEAN CORPUSCULAR HGB CONC 33.8 g/dL (33.0-36.5); MEAN PLATELET VOLUME 8.2 FL (7.4-10.4); MONOCYTES # (AUTO) 1.5 X10'3 (0-0.9); MONOCYTES % (AUTO) 19.8 % (2-12); NEUTROPHILS % (AUTO) 66.3 % (42-75); PLATELET COUNT 190 X10'3 (140-440); RED BLOOD COUNT 3.72 X10'6 (4.20-5.60); RED CELL DISTRIBUTION WIDTH 15.3 % (11.5-14.5)
--- NOTE | 2023-01-22 06:42 | NUR ---
reported to days. noted pt premedicated for PT. has 5 steps at home.
--- NOTE | 2023-01-22 06:53 | NUR ---
Patient in room ORTHO 4013. I have received report from KENZIE Muhammad and had the opportunity to ask questions and assume patient care.
[2023-01-22 06:56] LABS: PLATELET ESTIMATE NORMAL; TOTAL CELLS COUNTED 100
[2023-01-22] MEDS: aspirin 325mg tablet PO SCH (08:02)
[2023-01-22] MEDS: lisinopril 10 MG tablet PO SCH (08:02)
[2023-01-22] MEDS: ESCITALOPRAM 10 mg tablet 10 MG TABLET PO SCH (08:03)
[2023-01-22] MEDS: budesonide 0.5mg/2ml UD nebule IH SCH (08:57)
[2023-01-22] MEDS ORDERED: acetaminophen 325mg tablet PO PRN (11:00)
--- NOTE | 2023-01-22 17:10 | NUR ---
pt given discharge packet and was able to ask questions upon discharge. Pt wheelchaired down to lobby with all of her belongings, stable and in no distress. Pt left in a private vehicle with her
== END 2023-01-22 17:15 | disposition home or self-care (01) | DRG 326 ==
LOC: PAS IN 05:50 → ORTHO 4S 13:00
PROVIDERS: ADMIT Orthopaedic Surgery; ATTEND Orthopaedic Surgery
PROC: 3E0T3BZ Introduction of Anesthetic Agent into Peripheral Nerves and Plexi, Percutaneous Approach (ICD-10-PCS; 2023-01-20)
PROC: 3E0T33Z Introduction of Anti-inflammatory into Peripheral Nerves and Plexi, Percutaneous Approach (ICD-10-PCS; 2023-01-20)
PROC: 8E0Y0CZ Robotic Assisted Procedure of Lower Extremity, Open Approach (ICD-10-PCS; 2023-01-20)
PROC: 0SRC0J9 Replacement of Right Knee Joint with Synthetic Substitute, Cemented, Open Approach (ICD-10-PCS; principal; 2023-01-20 08:21)
DX: M17.11 Unilateral primary osteoarthritis, right knee (principal)
CPT/HCPCS: 36415; 80051; 80053; 82948; 85007; 85025; 87081; 93005; 94640; 94760; 97110; 97116; 97161; 97530; A4215; A4615; A4618; A7000; C1713; C1758; C1776; G0378; J0690; J1100; J1170; J2250; J2405; J2795; J3010; J3370; J3480; J7120

== ENCOUNTER 2023-03-02 14:21 | Emergency (ER) | payer MEDICAID ==
[~2023-03-02] VITALS: Ht 162.6 cm; Wt 103.6 kg
[~2023-03-02 14:21] MED LIST changes: -famotidine 20mg tablet PO ONE; -ringers solution, lacted 1,000 ML IV SCH
[2023-03-02 14:34] VITALS: BP 172/72; PULSE 83; RESP 16; TEMP 98.4; O2SAT 96
[2023-03-02] MEDS ORDERED: SULF1TAB49 PO (14:38)
[2023-03-02] MEDS ORDERED: CEPH-585 PO (14:38)
== END 2023-03-02 14:59 | disposition home or self-care (01) ==
LOC: ER 14:22
DX: L03.115 Cellulitis of right lower limb (principal); Z90.710 Acquired absence of both cervix and uterus; Z79.2 Long term (current) use of antibiotics; Z79.899 Other long term (current) drug therapy
CPT/HCPCS: 99283

== ENCOUNTER 2023-10-05 09:15 | Inpatient (IN) | payer MEDICAID ==
[~2023-10-05] VITALS: Ht 162.6 cm; Wt 106.6 kg
[~2023-10-05 09:15] MED LIST changes: -BECL7.3A INH; -ESCI20TA17 PO; -LISI40TA13 PO; -LORA-835 PO
[2023-11-10 14:44] LABS: BASOPHILS # (AUTO) 0.1 X10'3 (0-0.2); BASOPHILS % (AUTO) 0.8 % (0-1); EOSINOPHILS # (AUTO) 0.2 X10'3 (0-0.9); EOSINOPHILS % (AUTO) 3.6 % (0-6); LYMPHOCYTES # (AUTO) 2.1 X10'3 (1.1-4.8); LYMPHOCYTES % (AUTO) 29.9 % (21-51); MEAN CORPUSCULAR HEMOGLOBIN 28.6 PG (27.0-31.0); MEAN CORPUSCULAR HGB CONC 32.6 g/dL (33.0-36.5); MEAN CORPUSCULAR VOLUME 87.7 FL (78-98); MEAN PLATELET VOLUME 8.1 FL (7.4-10.4); MONOCYTES # (AUTO) 0.8 X10'3 (0-0.9); MONOCYTES % (AUTO) 11.3 % (2-12); NEUTROPHILS # (AUTO) 3.8 X10'3 (1.8-7.7); NEUTROPHILS % (AUTO) 54.4 % (42-75); PRE OP HEMATOCRIT 45.6 % (35.0-45.0); PRE OP HEMOGLOBIN 14.9 g/dL (12.0-16.0); PRE OP PLATELET COUNT 247 X10'3 (140-440); PRE OP WHITE BLOOD COUNT 6.9 10'3 (4.8-10.8); RED BLOOD COUNT 5.21 X10'6 (4.20-5.60); RED CELL DISTRIBUTION WIDTH 14.8 % (11.5-14.5)
[2023-11-10 14:57] LABS: ALBUMIN 4.1 G/DL (3.4-5.0); ALBUMIN/GLOBULIN RATIO 1.1 (1.1-1.5); ALKALINE PHOSPHATASE 83 IU/L (46-116); BLOOD UREA NITROGEN 16 MG/DL (7-18); BUN/CREATININE RATIO 22.9 (10.0-20.0); CALCIUM 9.2 MG/DL (8.5-10.1); CHLORIDE 104 MMOL/L (99-107); PRE OP ALT 40 U/L (30-65); PRE OP ANION GAP 8 (8-16); PRE OP AST 25 U/L (10-37); PRE OP BILIRUB, TOTAL 0.6 MG/DL (0.0-1.0); PRE OP GLUCOSE 95 MG/DL (70-104); PRE OP POTASSIUM 3.8 MMOL/L (3.4-5.1); PRE OP SODIUM 142 MMOL/L (135-145); TOTAL CARBON DIOXIDE 30.3 MMOL/L (24-32); TOTAL PROTEIN 7.9 G/DL (6.4-8.2); eGFR 84 ML/MIN
[2023-11-10] MEDS ORDERED: NAPR220C62 PO (16:43)
[2023-11-10] MEDS ORDERED: LISI10TA27 PO (16:43)
[2023-11-10] MEDS ORDERED: MULT-1085 PO (16:43)
[2023-11-18] VITALS (27 sets, daily range): BP systolic 103–159; BP diastolic 47–106; PULSE 69–108; RESP 11–21; TEMP 97.5–98.2; O2SAT 92–99
[2023-11-18] MEDS: ringers solution, lacted 1,000 ML IV SCH ×3 (05:30→10:05)
[2023-11-18] MEDS: cefazolin 2gm/D5W 100mL 100 ML IV ONE (06:18)
[2023-11-18] MEDS: vancomycin/NS 1 GM in NS 250 ML IV ONE (06:19)
[2023-11-18] MEDS: famotidine 20mg tablet PO ONE ×2 (06:19→06:20)
[2023-11-18] MEDS: tranexamic acid 650mg tablet PO ONE (06:20)
[2023-11-18] MEDS: albuterol 2.5 MG/3 ML nebule NEB ONE (06:53)
[2023-11-18] MEDS ORDERED: MIDAZolam 1mg/ml 10ml vial ONE (07:41)
[2023-11-18] MEDS ORDERED: fentaNYL/PF 50MCG/1 ML 2ML syringe ONE (07:41)
[2023-11-18] MEDS ORDERED: ePHEDrine 50MG/ML INJ. ONE (08:04)
[2023-11-18] MEDS ORDERED: ROPIVAcaine 0.5% (5mg/ml) 30ml vial ONE (08:04)
[2023-11-18] MEDS ORDERED: dexamethasone sod phosphate 4mg/ml inj. ONE (08:16)
[2023-11-18] MEDS: cloNIDine hcl/PF 100mcg/ml inj ONE (08:25)
[2023-11-18] MEDS: BUPIVACAINE/MELOXICAM 14 ML VIAL IL ONE (09:17)
[2023-11-18] MEDS ORDERED: LIDOcaine 1%/PF 5ML 10 MG/ML VIAL ONE (09:53)
[2023-11-18] MEDS ORDERED: propofol inj 20 ML IV ONE (09:53)
[2023-11-18] MEDS ORDERED: meperidine/PF 25mg/ml syringe IV PRN ×3 (10:05)
[2023-11-18] MEDS ORDERED: labetalol 20mg/4ml (5mg/ml) syringe IV PRN (10:05)
[2023-11-18] MEDS ORDERED: morphine 2 MG/ML inj. syringe IV PRN (10:05)
[2023-11-18] MEDS ORDERED: proCHLORperazine 10 MG/2 ml inj IV PRN (10:05)
[2023-11-18] MEDS ORDERED: morphine 4 MG/ML inj SYRINge IV PRN (10:05)
[2023-11-18] MEDS ORDERED: ondansetron/PF 4mg/2ml inj IV PRN ×2 (10:05→10:40)
[2023-11-18] MEDS ORDERED: enalaprilat dihydrate 2.5mg/2ml vial IV PRN (10:05)
[2023-11-18] MEDS ORDERED: magnesium hydroxide 30ml (MOM) UD suspension PO PRN (10:40)
[2023-11-18] MEDS ORDERED: naproxen sodium 220mg tablet PO PRN (10:40)
[2023-11-18] MEDS ORDERED: naloxone 0.4 mg/ml inj IV PRN (10:40)
[2023-11-18] MEDS ORDERED: diphenhydrAMINE 25mg capsule PO PRN ×2 (10:40)
[2023-11-18] MEDS ORDERED: TYPE IN GENERIC & BRAND NAME OF PATIENT MED STRENGTH & FORM IH PRN (10:40)
[2023-11-18] MEDS: potassium cl 20mEq in 1/2 NS 1,000 ML IV SCH (10:40)
[2023-11-18] MEDS ORDERED: acetaminophen 325mg tablet PO PRN (10:40)
[2023-11-18] MEDS ORDERED: HYDROmorphone 1 mg/ml syringe IV PRN (10:40)
[2023-11-18] MEDS ORDERED: bisacodyl 10mg suppository rectal RC PRN (10:40)
[2023-11-18] MEDS ORDERED: oxyCODONE IR 5mg (immed. release) tablet PO PRN (10:40)
[2023-11-18] MEDS: ipratropium/albuterol 3ml nebule NEB ONE (14:05)
[2023-11-18] MEDS: oxyCODONE IR 5mg (immed. release) tablet PO PRN (14:54)
[2023-11-18] MEDS: acetaminophen 325mg tablet PO SCH (14:54)
[2023-11-18] MEDS: ceFAZolin/D5W- 1GM premix 50 ML IV SCH (16:56)
[2023-11-18] MEDS ORDERED: cloNIDine 0.1 mg tablet PO PRN (18:10)
[2023-11-18] MEDS ORDERED: hydrALAZINE 20mg/ml inj. IV PRN (18:10)
[2023-11-18] MEDS ORDERED: glucagon, human recombinant 1mg kit SUBCUT PRN (18:30)
[2023-11-18] MEDS ORDERED: dextrose 50%-water 50ml dispensing syringe IV PRN ×2 (18:30)
[2023-11-18] MEDS ORDERED: DEXTROSE 15 GM of carb/4 tabs (each vial/BOTTLE has 4 tablets) PO PRN ×2 (18:30)
[2023-11-18] MEDS: vancomycin/NS 1 GM ADD-VANTAGE 250 ML IV SCH (19:55)
[2023-11-18] MEDS: atorvastatin 20mg tablet PO SCH (20:01)
[2023-11-18] MEDS: traZODone 150mg tablet PO SCH (20:02)
[2023-11-18] MEDS: sennosides 8.6mg tablet PO SCH (20:02)
[2023-11-18] MEDS: HYDROmorphone inj. 0.5 MG/0.5 ML DISP.SYRIN IV PRN (22:38)
[2023-11-18] MEDS: INSULIN LISPRO 100 UNIT/ML INSULN.PEN MULTI-DOSE SQ SCH (22:39)
[2023-11-19 02:00] VITALS: BP 121/61; PULSE 55; RESP 16; TEMP 97.5; O2SAT 94
[2023-11-19 06:00] VITALS: BP 132/59; PULSE 72; RESP 18; TEMP 96.9; O2SAT 97
[2023-11-19 07:33] LABS: BASOPHILS % (AUTO) 0.3 % (0-1); EOSINOPHILS % (AUTO) 0.1 % (0-6); HEMATOCRIT 36.9 % (35.0-45.0); HEMOGLOBIN 12.4 g/dl (12.0-16.0); LYMPHOCYTES # (AUTO) 1.2 X10'3 (1.1-4.8); LYMPHOCYTES % (AUTO) 10.8 % (21-51); MEAN CORPUSCULAR HEMOGLOBIN 28.9 PG (27.0-31.0); MEAN CORPUSCULAR HGB CONC 33.5 g/dL (33.0-36.5); MEAN CORPUSCULAR VOLUME 86.2 FL (78-98); MEAN PLATELET VOLUME 8.5 FL (7.4-10.4); MONOCYTES # (AUTO) 1.2 X10'3 (0-0.9); MONOCYTES % (AUTO) 11.2 % (2-12); NEUTROPHILS # (AUTO) 8.3 X10'3 (1.8-7.7); NEUTROPHILS % (AUTO) 77.6 % (42-75); PLATELET COUNT 220 X10'3 (140-440); RED BLOOD COUNT 4.28 X10'6 (4.20-5.60); RED CELL DISTRIBUTION WIDTH 14.1 % (11.5-14.5); WHITE BLOOD COUNT 10.7 X10'3 (4.5-11.0)
[2023-11-19 08:01] LABS: ALANINE AMINOTRANSFERASE 28 U/L (12-78); ALBUMIN 2.9 G/DL (3.4-5.0); ALBUMIN/GLOBULIN RATIO 0.7 (1.1-1.5); ALKALINE PHOSPHATASE 70 IU/L (46-116); ANION GAP 10 (8-16); ASPARTATE AMINO TRANSFERASE 34 U/L (10-37); BILIRUBIN,TOTAL 0.6 MG/DL (0.1-1.0); BLOOD UREA NITROGEN 12 MG/DL (7-18); BUN/CREATININE RATIO 16.2 (10.0-20.0); CALCIUM 8.7 MG/DL (8.5-10.1); CHLORIDE 106 MMOL/L (99-107); CREATININE 0.74 MG/DL (0.40-0.90); GLUCOSE 132 MG/DL (70-104); HEMOGLOBIN A1C 6.3 % (4.5-6.2); POTASSIUM 4.5 MMOL/L (3.5-5.1); SODIUM 140 MMOL/L (135-145); TOTAL CARBON DIOXIDE 24.2 MMOL/L (24-32); TOTAL PROTEIN 6.8 G/DL (6.4-8.2); eCRCL 66 ML/MIN; eGFR 79 ML/MIN
[2023-11-19] MEDS: aspirin 325mg tablet PO SCH (08:57)
[2023-11-19] MEDS: multivitamins, therapeutics tablet PO SCH (08:57)
[2023-11-19] MEDS: lisinopril 10 MG tablet PO SCH (08:58)
[2023-11-19 10:00] VITALS: BP 138/67; PULSE 85; RESP 16; TEMP 97.9; O2SAT 95
[2023-11-19] MEDS ORDERED: celeCOXIB 100mg capsule PO SCH (20:00)
[2023-11-20] MEDS ORDERED: acetaminophen 325mg tablet PO PRN (18:20)
== END 2023-11-19 15:09 | disposition home health service (06) | DRG 326 ==
LOC: PAS IN 11-18 05:42 → ORTHO 4S 11-18 12:00
PROVIDERS: ADMIT Orthopaedic Surgery; ATTEND Orthopaedic Surgery
PROC: 3E0T3BZ Introduction of Anesthetic Agent into Peripheral Nerves and Plexi, Percutaneous Approach (ICD-10-PCS; 2023-11-18)
PROC: 3E0T33Z Introduction of Anti-inflammatory into Peripheral Nerves and Plexi, Percutaneous Approach (ICD-10-PCS; 2023-11-18)
PROC: 0SRD0J9 Replacement of Left Knee Joint with Synthetic Substitute, Cemented, Open Approach (ICD-10-PCS; principal; 2023-11-18 08:00)
DX: M17.12 Unilateral primary osteoarthritis, left knee (principal); E66.01 Morbid (severe) obesity due to excess calories; E78.5 Hyperlipidemia, unspecified; G25.81 Restless legs syndrome; I10 Essential (primary) hypertension; R73.03 Prediabetes; F32.A Depression, unspecified; F41.9 Anxiety disorder, unspecified; Z68.41 Body mass index [BMI] 40.0-44.9, adult
CPT/HCPCS: 36415; 80053; 82948; 83036; 85025; 87081; 93005; 94640; 94760; 97110; 97116; 97161; A4215; A4615; A4618; A6258; A7000; C1713; C1776; G0378; J0690; J0735; J1100; J1170; J1815; J2250; J2704; J2795; J3010; J3370; J3480; J3490; J7120